=== PATIENT | female | born 1975 | race Caucasian/White ===

== ENCOUNTER 2023-01-16 10:53 | Outpatient (CLI) | payer OTHER | END 2023-01-16 10:54 | disposition home or self-care (01) | LOC: SCSCT 10:53 | PROVIDERS: ATTEND Surgery | DX: M43.12 Spondylolisthesis, cervical region (principal); M47.812 Spondylosis without myelopathy or radiculopathy, cervical region; M48.02 Spinal stenosis, cervical region | CPT/HCPCS: 72040; 72125 ==